=== PATIENT | male | born 2000 | race Caucasian/White ===

== ENCOUNTER 2021-10-23 17:20 | Emergency (ER) | payer OTHER ==
[2021-10-23 18:32] LABS: HEMOGLOBIN 15.1 gm/dl (14.0-17.5); RED BLOOD COUNT 5.27 M/UL (4.20-5.50); WHITE BLOOD COUNT 6.4 K/UL (4.5-11.0)
[2021-10-23 19:02] LABS: BUN/CREATININE RATIO 7 (0-10)
== END 2021-10-23 20:12 | disposition home or self-care (01) ==
LOC: ER1 17:20
PROVIDERS: Family Medicine
DX: R00.2 Palpitations (principal)
CPT/HCPCS: 71045; 80053; 82550; 82553; 84439; 84443; 84484; 85025; 93005; 99285